=== PATIENT | female | born 1965 | race Caucasian/White ===

== ENCOUNTER 2022-05-27 15:46 | Emergency (ER) | payer OTHER ==
[~2022-05-27] VITALS: Ht 157.5 cm; Wt 117.0 kg
[2022-05-27 15:51] VITALS: BP 110/59
--- NOTE | 2022-05-27 16:05 | NUR ---
X-Ray at bedside.
--- NOTE | 2022-05-27 16:19 | NUR ---
56Y/O FEMALE BIBA FROM [facility] [place] C/O CHEST PAIN INTERMITTENT X3DAYS RADIATING FROM LEFT SIDE OF CHEST TO BACK, NO MEDS PRIOR TO ARRIVAL, 12LEAD BY EMS STATES NSR WITH PVC ALLERGY: HYDRALAZINE, KETOROLAC, LISINOPRL, MORPHINE, NSAIDS, TROMETHAMINE PMH: CVA, HDL, HF, EPILEPSY, CKD, ANXIETY, HTN, DM
[2022-05-27 16:21] LABS: BASOPHILS # (AUTO) 0.1 K/uL (0.00-0.22); BASOPHILS % (AUTO) 0.9 % (0.0-2.0); EOSINOPHILS # (AUTO) 0.2 K/uL (0-0.4); EOSINOPHILS % (AUTO) 2.3 % (0.0-4.0); HEMOGLOBIN 12.7 g/dL (12.0-16.0); LYMPHOCYTES # (AUTO) 1.6 K/uL (2.5-16.5); LYMPHOCYTES % (AUTO) 22.8 % (20.5-51.1); MEAN CORPUSCULAR HEMOGLOBIN 28 pg (27-31); MEAN CORPUSCULAR HGB CONC 34 g/dL (33-37); MEAN CORPUSCULAR VOLUME 83.6 fL (80-94); MONOCYTES # (AUTO) 0.5 K/uL (0.8-1.0); MONOCYTES % (AUTO) 7.5 % (1.7-9.3); NEUTROPHILS # (AUTO) 4.6 K/uL (1.8-7.7); NEUTROPHILS % (AUTO) 66.5 % (42.2-75.2); PLATELET COUNT (AUTO) 219 K/uL (140-450); RED BLOOD CELL COUNT(AUTO) 4.55 MIL/uL (4.20-5.40); RED CELL DISTRIBUTION WIDTH 15.1 % (11.6-13.7)
[2022-05-27 16:44] LABS: ALBUMIN 3.2 g/dL (3.4-5.0); ANION GAP 10.6 (8-16); CARBON DIOXIDE 28.5 mmol/L (21-32); CREATININE 1.1 mg/dL (0.6-1.3); POTASSIUM 4.1 mmol/L (3.5-5.1); TOTAL BILIRUBIN 0.3 mg/dL (0.0-1.0)
[2022-05-27] MEDS ORDERED: ONDANSETRON 4 MG ODT PO ONE (17:05)
[2022-05-27] MEDS ORDERED: FUROSEMIDE 40 MG/4 ML VIAL IVP ONE (18:05)
[2022-05-27] MEDS ORDERED: ASPIRIN 325 MG TAB PO ONE (18:05)
[2022-05-27] MEDS ORDERED: CARV25TA2 PO (18:32)
[2022-05-27] MEDS ORDERED: POTA10TA81 PO (18:32)
[2022-05-27] MEDS ORDERED: CLOP-68 PO (18:32)
[2022-05-27] MEDS ORDERED: AMLO10TA88 PO (18:32)
[2022-05-27] MEDS ORDERED: DOCU-300 PO (18:32)
[2022-05-27] MEDS ORDERED: LEVE1000 PO (18:32)
[2022-05-27] MEDS ORDERED: ATOR40TA40 PO (18:32)
[2022-05-27] MEDS ORDERED: ACET-9520 PO (18:41)
[2022-05-27] MEDS ORDERED: ACET-9526 PO (18:41)
[2022-05-27] MEDS ORDERED: LACT-103 PO (18:41)
[2022-05-27] MEDS ORDERED: GABA-636 PO (18:41)
[2022-05-27] MEDS ORDERED: MAGN400S60 PO (18:48)
--- NOTE | 2022-05-27 19:16 | NUR ---
Pt report given to MARY ANN GUNDERSON. Transfer of care at this time.
--- NOTE | 2022-05-27 19:30 | NUR ---
Note noam in EDM - 05/27/22 at 1956 by [id number] ASSUMED CARE OF PT AT THIS TIME. PT IN POSITION OF COMFORT. REQUESTING NAUSEA MEDICATION. DR. JOE AT BEDSIDE TO DISCUSS FURTHER POC. PT WANTING TO WAIT FOR CT SCAN HERE CT SCAN DOWN UNTIL 2300. WILL FOLLOW THROUGH WITH ANY FURTHER ORDERS. WILL CONTINUE TO MONITOR.
--- NOTE | 2022-05-27 20:58 | NUR ---
PT CLEANED AT THIS TIME. NEW LINEN AND BRIEF PLACED. PT TOLERATED WELL. AWAITING TRANSPORT TO [place]. UNKNOWN LOCATION. VSS. WILL CONTINUE TO MONITOR.
--- NOTE | 2022-05-27 21:54 | NUR ---
PT RESTING, NO S/S OF DISTRESS NOTED. AWAITING [facility] DECISION. WILL CONTINUE TO MONITOR.
--- NOTE | 2022-05-27 23:30 | NUR ---
PT RESTING, AWAITING [facility] WITH TRANSFER INFORMATION.
--- NOTE | 2022-05-28 01:30 | NUR ---
PT RESTING, NO S/S OF DISTRESS NOTED. AWAITING [place] TO CALL BACK WITH BED
--- NOTE | 2022-05-28 03:41 | NUR ---
PT RESTING. DENIES ANY PAIN AT THIS TIME. PT UPDATED ON POC WITH LATRICE.
--- NOTE | 2022-05-28 06:12 | NUR ---
REPORT CALLED TO BREE GUNDERSON AT [facility]. AWAITING TRANSPORT. VSS. PT AWARE.
[2022-05-28 07:13] VITALS: BP 122/72
== END 2022-05-28 07:13 | disposition short-term general hospital (02) ==
LOC: MED 15:46
DX: E87.70 Fluid overload, unspecified (principal); R06.02 Shortness of breath; Z20.822 Contact with and (suspected) exposure to COVID-19; R29.810 Facial weakness; E11.22 Type 2 diabetes mellitus with diabetic chronic kidney disease; I13.0 Hypertensive heart and chronic kidney disease with heart failure and stage 1 through stage 4 chronic kidney disease, or unspecified chronic kidney disease; I50.9 Heart failure, unspecified; N18.9 Chronic kidney disease, unspecified; Z86.73 Personal history of transient ischemic attack (TIA), and cerebral infarction without residual deficits; Z86.69 Personal history of other diseases of the nervous system and sense organs; E78.5 Hyperlipidemia, unspecified; Z85.89 Personal history of malignant neoplasm of other organs and systems; Z79.899 Other long term (current) drug therapy; Z79.891 Long term (current) use of opiate analgesic; Z79.01 Long term (current) use of anticoagulants; Z88.6 Allergy status to analgesic agent; Z88.8 Allergy status to other drugs, medicaments and biological substances; Z88.5 Allergy status to narcotic agent
CPT/HCPCS: 36415; 71045; 80053; 83880; 84484; 85025; 85379; 87426; 93005; 96374; 99285; J1940; Q0092; Q0162